=== PATIENT | male | born 1935 | race Caucasian/White ===

== ENCOUNTER 2018-10-08 06:50 | Day surgery (SDC) | payer MEDICARE, BC ==
[~2018-10-08] VITALS: Ht 172.7 cm; Wt 73.0 kg
[~2018-10-08 06:50] MED LIST: ASPI325 PO; GLIP10 PO; METF500C PO; Multivitamin1 EAC1 PO; RED YEAST RICE600 MG PO; Simvastatin20 MG PO
[2018-10-08 07:22] LABS: Hematocrit 46.2 % (37.0-53.0); Hemoglobin 14.2 g/dL (13.5-17.5); Mean Corpuscular HGB 28.7 pg (26.0-34.0); Mean Corpuscular HGB Conc 30.7 g/dL (31.5-36.5); Mean Corpuscular Volume 94 fL (80-100); Mean Platelet Volume 11.7 fL (9.1-12.4); Platelet Count 317 K/mm3 (150-400); RDW Coefficient Variation 15.4 % (11.7-14.2); RDW Standard Deviation 52.7 fL (35.1-46.3); Red Blood Cell Count 4.94 M/mm3 (4.30-5.90); White Blood Cell Count 24.98 K/mm3 (4.00-11.30)
[2018-10-08 07:29] LABS: Anion Gap 8 mmol/L (6-16); Blood Urea Nitrogen 26 mg/dL (8-24); CO2, Blood 28 mmol/L (21-32); Calcium, Blood 8.7 mg/dL (8.5-10.1); Chloride, Blood 109 mmol/L (98-108); Creatinine, Blood 1.18 mg/dL (0.60-1.20); Glomerular Filtration Rate >60 (60-); Glucose, Blood 207 mg/dL (70-99); Potassium, Blood 4.2 mmol/L (3.5-5.5); Sodium, Blood 145 mmol/L (136-145)
[2018-10-08 07:35] LABS: International Normalized Ratio 0.96; Prothrombin Time Results 10.2 Sec (9.7-11.5)
[2018-10-08 08:39] LABS: BASOPHILS PERCENT MAN 0 % (0-2); EOSINOPHILS ABSOLUTE MAN 0.49 K/mm3 (0.00-0.68); EOSINOPHILS PERCENT MAN 2 % (0-6); LYMPHOCYTES % ATYPICAL MANUAL 3 % (0-0); LYMPHOCYTES ABSOLUTE MAN 15.73 K/mm3 (0.84-5.20); LYMPHOCYTES PERCENT MAN 60 % (21-46); MONOCYTES ABSOLUTE MAN 0.99 K/mm3 (0.16-1.47); MONOCYTES PERCENT MAN 4 % (4-13); NEUTROPHILS ABSOLUTE MAN 7.74 K/mm3 (1.96-9.15); SEG NEUTROPHILS PERCENT MAN 31 % (41-73); TOTAL CELLS COUNTED 100
--- NOTE | 2018-10-08 09:29 | NUR ---
PT ARRIVED BACK TO RECOVERY ROOM IN BED. RIGHT FEMORAL GROIN SITE SOFT NON-TENDER WITH NO HEMATOMA,NO PULSATILE BLEEDING AND INTACT DRESSING WITH SLIGHT TRACK OOZING NOTED. PT DENIES PAIN. CALL LIGHT IN REACH. PT'S FAMILY IN ROOM. DR PETERSEN IN ROOM TO SEE PT.
--- NOTE | 2018-10-08 10:10 | NUR ---
PT EATING BREAKFAST AND DRINKING DIET PEPSI.
--- NOTE | 2018-10-08 10:51 | NUR ---
HOB UP 15 DEGREES.
--- NOTE | 2018-10-08 12:55 | NUR ---
RIGHT FEMORAL SITE SOFT WITH NO HEMATOMA AND NO BLEEDING. DRESSING INTACT. PT C/O "SORENESS" RIGHT FEMORAL SITE, DENIES ANY SHARP PAIN IN BACK.
--- NOTE | 2018-10-08 13:05 | NUR ---
PT AMBULATED TO BR TO VOID. RIGHT FEMORAL SITE NO CHANGES.
--- NOTE | 2018-10-08 13:27 | NUR ---
RIGHT GROIN SOFT STILL SOFT WITH NO HEMATOMA AND NO BLEEDING. DISCHARGE INSTRUCTIONS REVIEWED ALL QUESTIONS ANSWERED. 20 G IV DISCONTINUED FROM LEFT AC WITH INTACT CANNULA. PT ESCORTED OUT VIA WHEELCHAIR ESCORT.
== END 2018-10-08 13:30 | disposition home or self-care (01) ==
LOC: MHTC 06:50
PROVIDERS: Radiology Diagnostic Radiology
DX: I73.9 Peripheral vascular disease, unspecified (principal); E11.9 Type 2 diabetes mellitus without complications; Z79.84 Long term (current) use of oral hypoglycemic drugs; E78.5 Hyperlipidemia, unspecified; Z87.891 Personal history of nicotine dependence; Z88.8 Allergy status to other drugs, medicaments and biological substances
CPT/HCPCS: 37220; 37225; 75625; 75716; 75774; 80048; 85025; 85610; 99152; 99153; C1714; C1769; C1884; C1887; C1894; C2623; J1644; J2250; J3010; J7030; J7040; Q9967

== ENCOUNTER 2020-08-28 10:21 | Inpatient (IN) | payer MEDICARE, BC ==
[~2020-08-28] VITALS: Ht 170.2 cm; Wt 67.5 kg
[~2020-08-28 10:21] MED LIST changes: -ASPI325 PO; +ASPI325EC PO; +METF500 PO; -METF500C PO
[2020-08-28] MEDS ORDERED: CLOP75 PO (10:35)
[2020-08-28 10:53] LABS: Hematocrit 43.8 % (37.0-53.0); Hemoglobin 12.7 g/dL (13.5-17.5); Mean Corpuscular Volume 97 fL (80-100); Mean Platelet Volume 11.6 fL (9.1-12.4); Platelet Count 357 K/mm3 (150-400); RDW Coefficient Variation 15.9 % (11.7-14.2); RDW Standard Deviation 56.2 fL (35.1-46.3); Red Blood Cell Count 4.53 M/mm3 (4.30-5.90)
[2020-08-28 10:56] LABS: White Blood Cell Count 82.94 K/mm3 (4.00-11.30)
[2020-08-28 11:41] LABS: BASOPHILS PERCENT MAN 0 % (0-2); EOSINOPHILS ABSOLUTE MAN 0.82 K/mm3 (0.00-0.68); EOSINOPHILS PERCENT MAN 1 % (0-6); LYMPHOCYTES ABSOLUTE MAN 68.84 K/mm3 (0.84-5.20); LYMPHOCYTES PERCENT MAN 83 % (21-46); MONOCYTES ABSOLUTE MAN 4.14 K/mm3 (0.16-1.47); MONOCYTES PERCENT MAN 5 % (4-13); NEUTROPHILS ABSOLUTE MAN 9.12 K/mm3 (1.96-9.15); SEG NEUTROPHILS PERCENT MAN 11 % (41-73); TOTAL CELLS COUNTED 100
[2020-08-28 11:49] LABS: Alanine Aminotransfer (ALT/SGP 11 U/L (12-78); Albumin, Blood 2.6 g/dL (3.4-5.0); Albumin/Globulin Ratio 0.6 (0.8-1.8); Alk Phos 103 U/L (50-136); Anion Gap 11 mmol/L (6-16); Aspartate Aminotrans (AST/SGOT 13 U/L (12-37); Bilirubin, Total 0.5 mg/dL (0.1-1.0); Blood Urea Nitrogen 16 mg/dL (8-24); Bun/Creatinine Ratio 18.2 (12.0-20.0); CO2, Blood 25 mmol/L (21-32); Calcium, Blood 8.4 mg/dL (8.5-10.1); Chloride, Blood 103 mmol/L (98-108); Creatinine, Blood 0.88 mg/dL (0.60-1.20); Globulin, Blood 4.2 g/dL (2.2-4.0); Glomerular Filtration Rate >60 (60-); Glucose, Blood 129 mg/dL (70-99); Magnesium, Blood 2.1 mg/dL (1.6-2.4); Potassium, Blood 5.6 mmol/L (3.5-5.5); Sodium, Blood 139 mmol/L (136-145); Total Protein, Blood 6.8 g/dL (6.4-8.2); Troponin I <0.015 ng/mL (0.000-0.040)
[2020-08-28 12:29] LABS: Influenza A, PCR Negative (NEGATIVE); Influenza B, PCR Negative (NEGATIVE); Resp Syncytial Virus, PCR Negative (NEGATIVE); SARS-Cov-2 (COVID-19) PCR, MMC Negative (NEGATIVE)
[2020-08-28 13:40] LABS: PCO2 Arterial 73.7 mmHg (35-45); pH Blood Arterial 7.24 (7.35-7.45)
[2020-08-28] MEDS ORDERED: GLIP10ER PO (14:34)
[2020-08-28] MEDS ORDERED: METF500 PO (14:35)
[2020-08-28 15:43] LABS: Source, Urine Voided
[2020-08-28 15:46] LABS: Appearance, Urine Clear (Clear); Bilirubin, Urine Neg (Neg); Blood, Urine Neg (Neg); Color, Urine Yellow (P-Yellow); Glucose Qualitative, Urine Neg (Neg); Ketones, Urine Neg (Neg); Leukocyte Esterase, Urine Neg (Neg); Nitrite, Urine Neg (Neg); Protein, Urine 2+ (Neg); Urobilinogen, Urine NORM (Normal)
[2020-08-28 15:55] LABS: Bacteria Not Seen /hpf; Hyaline Casts 0-2 /lpf (0-2); Mucus Light (0-Heavy); Red Blood Cells, Urine Not Seen /hpf (0-2); Squamous Epithelial Cells Not Seen /hpf (Few); White Blood Cells, Urine Not Seen /hpf (0-5)
[2020-08-28 17:53] LABS: Base Excess Venous 2.9 mmol/L; Bicarbonate Venous 25.4 mmol/L (24.0-30.0); PCO2 Venous 65.4 mmHg (38-42); PO2 Venous 54.1 mmHg (38-42)
[2020-08-28 17:54] LABS: pH Blood Venous 7.27 (7.34-7.37)
--- NOTE | 2020-08-28 18:07 | NUR ---
PT ADMITTED TO PCU-8 VIA STRETCHER AND DAUGHTER IS IN ATTENDANCE WITH FATHER. PT IS CONFUSED AND SOMEWHAT COMBATIVE/FEARFUL. BIPAP CHANGED TO 14/6 30% PER RT. PT VOIDED SMALL AMOUNT. IV SITES INTACT.
--- NOTE | 2020-08-28 18:09 | NUR ---
PT IS RESTING WELL WITH DAUGHTER IN ROOM AND SATS INTACT. PT MAY NEED MUKESH VEST IF DAUGHTER LEAVES FOR NIGHT.
[2020-08-29 04:43] LABS: EOSINOPHILS ABSOLUTE AUTO 0.01 K/mm3 (0.00-0.68); EOSINOPHILS PERCENT AUTO 0 % (0-6); Hematocrit 37.4 % (37.0-53.0); Hemoglobin 10.7 g/dL (13.5-17.5); Mean Corpuscular HGB 27.8 pg (26.0-34.0); Mean Corpuscular HGB Conc 28.6 g/dL (31.5-36.5); Mean Corpuscular Volume 97 fL (80-100); NRBC ABSOLUTE 0.02 K/mm3 (0.00-0.02); Platelet Count 324 K/mm3 (150-400); RDW Coefficient Variation 15.9 % (11.7-14.2); RDW Standard Deviation 55.9 fL (35.1-46.3); Red Blood Cell Count 3.85 M/mm3 (4.30-5.90)
[2020-08-29 04:45] LABS: BASOPHILS ABSOLUTE AUTO 0.17 K/mm3 (0.00-0.23); BASOPHILS PERCENT AUTO 0 % (0-2); IMMATURE GRAN ABSOLUTE AUTO 0.54 K/mm3 (0.00-0.10); IMMATURE GRAN PERCENT AUTO 1 % (0-1); LYMPHOCYTES PERCENT AUTO 81 % (21-46); MONOCYTES ABSOLUTE AUTO 3.11 K/mm3 (0.16-1.47); MONOCYTES PERCENT AUTO 5 % (4-13); NEUTROPHILS ABSOLUTE AUTO 9.09 K/mm3 (1.96-9.15); NEUTROPHILS PERCENT AUTO 13 % (41-73)
[2020-08-29 04:46] LABS: White Blood Cell Count 68.32 K/mm3 (4.00-11.30)
[2020-08-29 05:00] LABS: Anion Gap 3 mmol/L (6-16); Blood Urea Nitrogen 27 mg/dL (8-24); CO2, Blood 31 mmol/L (21-32); Calcium, Blood 8.3 mg/dL (8.5-10.1); Chloride, Blood 106 mmol/L (98-108); Glomerular Filtration Rate >60 (60-); Glucose, Blood 192 mg/dL (70-99); Potassium, Blood 5.7 mmol/L (3.5-5.5); Sodium, Blood 140 mmol/L (136-145)
--- NOTE | 2020-08-29 07:23 | NUR ---
SHIFT SUMMARY PT IS CONFUSED, ORIENTED TO SELF ONLY. LESS DISORIENTED AT START AND END OF SHIFT. PT WAS COMBATIVE WHEN I WOKE HIM UP FOR HIS MIDNIGHT MEDICATIONS, HE WAS DIFFICULT TO AROUSE AND COULD NOT STAY AWAKE ENOUGH TO SWALLOW. VITALS STABLE, BP 100-110 SYSTOLIC, HR 70-90'S IN SINUS RHYTHM. PT ON BIPAP T/O SHIFT, UNABLE TO TAKE BIPAP OFF DUE TO PT DESATING TO LOW 80'S QUICKLY. BIPAP SETTING 14/6 30% AT START OF SHIFT, 16/6 40% WHEN SLEEPING WITH A SLOW RATE OF 10-12 BREATHS/MIN. PT BECOMES SOB WITH ANY EXERTION. PT CURRENTLY AWAKE AND MORE ALERT, WILL CONTINUE TO MONITOR UNTIL SHIFT CHANGE.
--- NOTE | 2020-08-29 13:25 | NUR ---
Advance Directive education/Spiritual care visit conducted. Patient is quite onry and funny today but patient's daughter, Katherine who is bedside is thankful when I hand her an advance care(AD) booklet. We go over the purpose and importance of the AD and look through the different sections. We talk about patietn's wishes and patient and Katherine agree to relook at the booklet when patient's spouse is present. I also conduct a life review of patient, discuss his spiritual journey ([employer] [facility] [employer] [facility]) and go over patient's career. I normalize patient patient's experience and provide companionship and prayer. Patient responds well and shows signs of an elevated mood. I will continue to remain available to patient and family.
--- NOTE | 2020-08-29 17:00 | NUR ---
SHIFT SUMMARY PT A&O TO SELF, FAMILY, SURROUNDING AND TIME. PT RESTING IN BED DURING SHIFT. UP TO BSC WITH 1 PERSON ASSIST. PT SOB WITH EXERTIONS ON BIPAP 08/20 AT 35% WITH BUR OF 12 THIS AM, TRANSITIONED TO 3L O2 VIA NC SPO2 >90% T/O SHIFT. PT DENIES PAIN, CHEST PAIN, NAUSEA AND DIZZINESS. PT RECEIVING PO ANTIBIOTICS. VSS. NO OTHER ACUTE CHANGES NOTED DURING SHIFT. WILL CONTINUE TO MONITOR UNITL REPORT TO ONCOMING RN.
--- NOTE | 2020-08-29 20:14 | NUR ---
CARE ASSUMPTION PT ALERT, ORIENTED TO SELF, FAMILY, FOLLOWING DIRECTIONS. SP02>92% ON 3L NC. PT HAS HACKING, MOIST COUGH. RT IN ROOM W/ PT USING SHAKER VEST UPON CARE ASSUMPTION. TELEMETRY READS SR, HR 78. PT DENIES ANY PAIN. PT'S AT BEDSIDE, STAYING THE NIGHT. CALL LIGHT IN REACH, WILL CONTINUE TO MONITOR.
[2020-08-30 04:08] LABS: Anion Gap 3 mmol/L (6-16); Blood Urea Nitrogen 39 mg/dL (8-24); Bun/Creatinine Ratio 34.8 (12.0-20.0); CO2, Blood 34 mmol/L (21-32); Calcium, Blood 8.3 mg/dL (8.5-10.1); Chloride, Blood 104 mmol/L (98-108); Creatinine, Blood 1.12 mg/dL (0.60-1.20); Glomerular Filtration Rate >60 (60-); Glucose, Blood 295 mg/dL (70-99); Sodium, Blood 141 mmol/L (136-145)
--- NOTE | 2020-08-30 05:55 | NUR ---
SHIFT SUMMARY NO ACUTE CHANGES THIS SHIFT. PT ALERT, ORIENTED TO SELF, FAMILY, FOLLOWING DIRECTIONS. VSS. SP02>90% ON 3L NC. PT DID NOT WEAR BIPAP TONIGHT PER RT B/C HIS SATS WERE GOOD W/ NC. PT HAS HACKING, MOIST COUGH. TELEMETRY READS SR, HR 70'S. PT DENIES ANY PAIN. PT USED URINAL AT BEDSIDE. SLEPT T/O THE NIGHT. NOW IN ROOM RESTING, WATCHING TV. PT'S AT BEDSIDE, STAYED THE NIGHT. CALL LIGHT IN REACH, WILL CONTINUE TO MONITOR.
[2020-08-30] MEDS ORDERED: AZIT250 PO (08:22)
[2020-08-30] MEDS ORDERED: GUAI600T33 PO (08:22)
[2020-08-30] MEDS ORDERED: IPRAT-ALBUT 0.5-3 ML INH (08:23)
[2020-08-30] MEDS ORDERED: Prednisone20 MG PO (08:25)
[2020-08-30] MEDS ORDERED: PANT20 PO (08:26)
[2020-08-30] MEDS ORDERED: PROAIR RESPICL90 MCG INH (08:26)
[2020-08-30] MEDS ORDERED: TIOT18 INH (08:26)
--- NOTE | 2020-08-30 16:08 | NUR ---
DISCHARGE SUMMARY PT A&Ox3; CALM AND COOPERATIVE WITH CARE. PT RESTING IN BED DURING SHIFT. UP TO BATHROOM WITH 1 PERSON ASSIST. PT SOB WITH EXERTION; ATTEMPTED TO TITRATE O2; PT WEARING 3L O2 VIA NC. HOME O2 EVALUATION COMPLETED. PT DENIES PAIN, NAUSEA AND DIZZINESS. VSS. NO OTHER ACUTE CHANGES NOTED DURING SHIFT. SPOUSE AND PT EDCUATED ON DISCHARGE INSTRUCTIONS, FOLLOW UP APPOINTMENTS AND PRESCRIPTIONS. [facility] [address]. PT LEFT ROOM VIA WHEELCHAIR.
== END 2020-08-30 15:15 | disposition home or self-care (01) | DRG 189 ==
LOC: ER 10:21 → PCU 14:17
PROVIDERS: Emergency Medicine; Nurse Practitioner Acute Care; ADMIT Internal Medicine
PROC: 5A09357 Assistance with Respiratory Ventilation, Less than 24 Consecutive Hours, Continuous Positive Airway Pressure (ICD-10-PCS; principal; 2020-08-28)
DX: J96.01 Acute respiratory failure with hypoxia (principal); G92 Toxic encephalopathy; J44.1 Chronic obstructive pulmonary disease with (acute) exacerbation; C91.10 Chronic lymphocytic leukemia of B-cell type not having achieved remission; Z20.828 Contact with and (suspected) exposure to other viral communicable diseases; J96.02 Acute respiratory failure with hypercapnia; E11.51 Type 2 diabetes mellitus with diabetic peripheral angiopathy without gangrene; E87.5 Hyperkalemia; E78.5 Hyperlipidemia, unspecified; F17.210 Nicotine dependence, cigarettes, uncomplicated; Z79.02 Long term (current) use of antithrombotics/antiplatelets; Z79.82 Long term (current) use of aspirin; Z79.84 Long term (current) use of oral hypoglycemic drugs
CPT/HCPCS: 0241U; 36415; 36600; 70450; 71045; 71260; 80048; 80053; 81001; 82803; 82947; 83735; 84100; 84132; 84484; 84550; 85025; 93005; 93010; 94640; 94660; 94664; 94667; 94668; 94760; 94762; 98960; 99285-25; 99407; A9270-GY; J1650; J2930; J7030; J7512; Q9967

== ENCOUNTER 2020-09-12 10:04 | Day surgery (SDC) | payer MEDICARE, BC ==
[~2020-09-12] VITALS: Ht 172.7 cm; Wt 63.0 kg
[~2020-09-12 10:04] MED LIST changes: +AZIT250 PO; +CLOP75 PO; +GLIP10ER PO; +GUAI600T33 PO; +IPRAT-ALBUT 0.5-3 ML INH; +PANT20 PO; +PROAIR RESPICL90 MCG INH; +Prednisone20 MG PO; +TIOT18 INH
== END 2020-09-12 19:00 | disposition home or self-care (01) ==
LOC: MHTC 10:04
DX: E11.51 Type 2 diabetes mellitus with diabetic peripheral angiopathy without gangrene (principal); I70.213 Atherosclerosis of native arteries of extremities with intermittent claudication, bilateral legs; E78.5 Hyperlipidemia, unspecified; I10 Essential (primary) hypertension; J44.9 Chronic obstructive pulmonary disease, unspecified; Z88.8 Allergy status to other drugs, medicaments and biological substances; Z20.828 Contact with and (suspected) exposure to other viral communicable diseases; Z79.82 Long term (current) use of aspirin; Z79.02 Long term (current) use of antithrombotics/antiplatelets; Z79.84 Long term (current) use of oral hypoglycemic drugs; Z79.899 Other long term (current) drug therapy; Z87.891 Personal history of nicotine dependence
CPT/HCPCS: 76937; 85347; 99152; 99153; C1714; C1725; C1760; C1769; C1874; C1884; C1887; C1894; C2623; J1644; J2250; J3010; J7030; J7050; Q9967

== ENCOUNTER 2020-09-25 11:43 | Emergency (ER) | payer OTHER ==
[~2020-09-25] VITALS: Ht 177.8 cm; Wt 65.8 kg
[2020-09-25 12:23] LABS: BASOPHILS ABSOLUTE AUTO 0.03 K/mm3 (0.00-0.23); BASOPHILS PERCENT AUTO 0 % (0-2); EOSINOPHILS ABSOLUTE AUTO 0.07 K/mm3 (0.00-0.68); EOSINOPHILS PERCENT AUTO 1 % (0-6); Hematocrit 39.5 % (37.0-53.0); Hemoglobin 11.5 g/dL (13.5-17.5); IMMATURE GRAN ABSOLUTE AUTO 0.06 K/mm3 (0.00-0.10); IMMATURE GRAN PERCENT AUTO 1 % (0-1); LYMPHOCYTES ABSOLUTE AUTO 5.36 K/mm3 (0.84-5.20); LYMPHOCYTES PERCENT AUTO 58 % (21-46); MONOCYTES ABSOLUTE AUTO 0.84 K/mm3 (0.16-1.47); MONOCYTES PERCENT AUTO 9 % (4-13); Mean Corpuscular HGB 27.6 pg (26.0-34.0); Mean Corpuscular HGB Conc 29.1 g/dL (31.5-36.5); Mean Corpuscular Volume 95 fL (80-100); Mean Platelet Volume 12.2 fL (9.1-12.4); NEUTROPHILS ABSOLUTE AUTO 2.87 K/mm3 (1.96-9.15); NEUTROPHILS PERCENT AUTO 31 % (41-73); Platelet Count 231 K/mm3 (150-400); RDW Coefficient Variation 15.4 % (11.7-14.2); RDW Standard Deviation 53.3 fL (35.1-46.3); Red Blood Cell Count 4.17 M/mm3 (4.30-5.90); White Blood Cell Count 9.23 K/mm3 (4.00-11.30)
[2020-09-25 12:41] LABS: Alanine Aminotransfer (ALT/SGP 22 U/L (12-78); Albumin, Blood 2.7 g/dL (3.4-5.0); Albumin/Globulin Ratio 0.8 (0.8-1.8); Alk Phos 100 U/L (50-136); Anion Gap 5 mmol/L (6-16); Aspartate Aminotrans (AST/SGOT 33 U/L (12-37); Bilirubin, Total 0.5 mg/dL (0.1-1.0); Blood Urea Nitrogen 25 mg/dL (8-24); Bun/Creatinine Ratio 27.7 (12.0-20.0); CO2, Blood 31 mmol/L (21-32); Calcium, Blood 8.3 mg/dL (8.5-10.1); Chloride, Blood 106 mmol/L (98-108); Globulin, Blood 3.5 g/dL (2.2-4.0); Glomerular Filtration Rate >60 (60-); Glucose, Blood 198 mg/dL (70-99); Potassium, Blood 5.7 mmol/L (3.5-5.5); Sodium, Blood 142 mmol/L (136-145); Total Protein, Blood 6.2 g/dL (6.4-8.2); Troponin I <0.015 ng/mL (0.000-0.040)
[2020-09-25 13:16] LABS: Source, Urine Clean Catch
[2020-09-25 13:26] LABS: Bilirubin, Urine Neg (Neg); Blood, Urine Neg (Neg); Glucose Qualitative, Urine 1+ (Neg); Ketones, Urine Neg (Neg); Leukocyte Esterase, Urine 1+ (Neg); Nitrite, Urine Neg (Neg); Protein, Urine 1+ (Neg); Urobilinogen, Urine 1+ (Normal)
[2020-09-25 13:33] LABS: Appearance, Urine Clear (Clear); Color, Urine Yellow (P-Yellow)
[2020-09-25 13:35] LABS: Bacteria Mod /hpf; Red Blood Cells, Urine 0-2 /hpf (0-2); Squamous Epithelial Cells Rare /hpf (Few)
== END 2020-09-25 14:36 | disposition home or self-care (01) ==
LOC: ER 11:43
PROVIDERS: Emergency Medicine
DX: R41.82 Altered mental status, unspecified (principal); F17.210 Nicotine dependence, cigarettes, uncomplicated; Z88.8 Allergy status to other drugs, medicaments and biological substances; Z79.84 Long term (current) use of oral hypoglycemic drugs; Z79.899 Other long term (current) drug therapy
CPT/HCPCS: 70450; 71046; 80053; 81001; 82947; 83880; 84484; 85025; 87077; 87086; 87186; 93005; 93010; 99285-25

== ENCOUNTER 2021-01-22 11:08 | Emergency (ER) | payer OTHER ==
[~2021-01-22] VITALS: Ht 170.2 cm; Wt 60.8 kg
[2021-01-22 12:12] LABS: BASOPHILS ABSOLUTE AUTO 0.09 K/mm3 (0.00-0.23); BASOPHILS PERCENT AUTO 0 % (0-2); EOSINOPHILS ABSOLUTE AUTO 0.34 K/mm3 (0.00-0.68); EOSINOPHILS PERCENT AUTO 1 % (0-6); Hematocrit 43.3 % (37.0-53.0); Hemoglobin 13.1 g/dL (13.5-17.5); Mean Corpuscular HGB 27.9 pg (26.0-34.0); Mean Corpuscular HGB Conc 30.3 g/dL (31.5-36.5); Mean Corpuscular Volume 92 fL (80-100); Mean Platelet Volume 11.2 fL (9.1-12.4); Platelet Count 351 K/mm3 (150-400); RDW Coefficient Variation 15.9 % (11.7-14.2); RDW Standard Deviation 53.5 fL (35.1-46.3); White Blood Cell Count 24.45 K/mm3 (4.00-11.30)
[2021-01-22 12:22] LABS: IMMATURE GRAN ABSOLUTE AUTO 0.07 K/mm3 (0.00-0.10); IMMATURE GRAN PERCENT AUTO 0 % (0-1); LYMPHOCYTES ABSOLUTE AUTO 15.62 K/mm3 (0.84-5.20); LYMPHOCYTES PERCENT AUTO 64 % (21-46); MONOCYTES ABSOLUTE AUTO 0.94 K/mm3 (0.16-1.47); MONOCYTES PERCENT AUTO 4 % (4-13); NEUTROPHILS ABSOLUTE AUTO 7.39 K/mm3 (1.96-9.15); NEUTROPHILS PERCENT AUTO 30 % (41-73)
[2021-01-22 12:27] LABS: International Normalized Ratio 0.95; Prothrombin Time Results 10.3 Sec (9.7-11.5)
[2021-01-22 12:36] LABS: Alanine Aminotransfer (ALT/SGP 15 U/L (12-78); Albumin, Blood 3.8 g/dL (3.4-5.0); Alk Phos 163 U/L (50-136); Anion Gap 8 mmol/L (6-16); Aspartate Aminotrans (AST/SGOT 9 U/L (12-37); Bilirubin, Total 0.5 mg/dL (0.1-1.0); Blood Urea Nitrogen 39 mg/dL (8-24); Bun/Creatinine Ratio 32.5 (12.0-20.0); CO2, Blood 26 mmol/L (21-32); Calcium, Blood 9.5 mg/dL (8.5-10.1); Chloride, Blood 107 mmol/L (98-108); Globulin, Blood 3.7 g/dL (2.2-4.0); Glomerular Filtration Rate >60 (60-); Glucose, Blood 222 mg/dL (70-99); Potassium, Blood 4.8 mmol/L (3.5-5.5); Sodium, Blood 141 mmol/L (136-145); Total Protein, Blood 7.5 g/dL (6.4-8.2)
[2021-01-22 12:59] LABS: Ethanol (Alcohol), Blood, Med <3 mg/dL
[2021-01-22 14:45] LABS: PCO2 Arterial 39.5 mmHg (35-45); PO2 Arterial 77 mmHg (80-100); pH Blood Arterial 7.36 (7.35-7.45)
[2021-01-22 16:19] LABS: Source, Urine Catheter
[2021-01-22 16:25] LABS: Appearance, Urine Clear (Clear); Bilirubin, Urine Neg (Neg); Blood, Urine Neg (Neg); Color, Urine Yellow (P-Yellow); Glucose Qualitative, Urine 4+ (Neg); Ketones, Urine Neg (Neg); Leukocyte Esterase, Urine Neg (Neg); Nitrite, Urine Neg (Neg); Protein, Urine 1+ (Neg); Urobilinogen, Urine NORM (Normal)
[2021-01-22 16:54] LABS: U Amphetamine Screen Not Detected; U Barbituate Screen Not Detected; U Benzodiazapine Screen Not Detected; U Buprenorphine Screen Not Detected; U Cannabinoids Screen Not Detected; U Cocaine Screen Not Detected; U Methadone Screen Not Detected; U Methamphetamine Screen Not Detected; U Opiates Screen Not Detected; U Oxycodone Screen Not Detected; U Phencyclidine Screen Not Detected; U Propoxyphene Screen Not Detected
== END 2021-01-22 17:40 | disposition home or self-care (01) ==
LOC: ER 11:08
PROVIDERS: Physician Assistant
DX: R41.0 Disorientation, unspecified (principal); G47.00 Insomnia, unspecified; R44.3 Hallucinations, unspecified; E11.9 Type 2 diabetes mellitus without complications; E78.5 Hyperlipidemia, unspecified; F17.200 Nicotine dependence, unspecified, uncomplicated
CPT/HCPCS: 36415; 36600; 70450; 80053; 82375; 82803; 82947; 85025; 85610; 93005; 93010; 99285-25; G0480

== ENCOUNTER 2022-02-05 12:10 | Day surgery (SDC) | payer OTHER ==
[~2022-02-05] VITALS: Ht 172.7 cm; Wt 60.3 kg
[~2022-02-05 12:10] MED LIST changes: +AMOX875 PO; +CALQUENCE PO; +CLIN150 PO
--- NOTE | 2022-02-05 16:37 | NUR ---
FOLLOWED PT BACK FROM PROCEDURE, WILL MONITOR. R GROIN SITE STABLE.
[2022-02-05] MEDS ORDERED: CLOP75 PO (16:42)
--- NOTE | 2022-02-05 17:06 | NUR ---
PT ACCIDENTLY PULLED IV OUT OF L FOREARM.
--- NOTE | 2022-02-05 17:31 | NUR ---
HOB ELEVATED, R GROIN SITE STABLE. PT EATING AT THIS TIME. DAUGHTER AT BEDSIDE.
--- NOTE | 2022-02-05 18:28 | NUR ---
DISCHARGE REVIEWED WITH DAUGHTERS, BOTH VERBALIZE UNDERSTANDING OF INSTRUCTIONS. PT UP AND DRESSED WITH ASSIST. R GROIN SITE STABLE. PT TO PRIVATE VEHICLE PER W/C WITH ONE STAFF.
== END 2022-02-05 18:30 | disposition home or self-care (01) ==
LOC: MHTC 12:10
DX: E11.51 Type 2 diabetes mellitus with diabetic peripheral angiopathy without gangrene (principal); E11.621 Type 2 diabetes mellitus with foot ulcer; I70.222 Atherosclerosis of native arteries of extremities with rest pain, left leg; I70.211 Atherosclerosis of native arteries of extremities with intermittent claudication, right leg; L97.519 Non-pressure chronic ulcer of other part of right foot with unspecified severity; L97.529 Non-pressure chronic ulcer of other part of left foot with unspecified severity; J44.9 Chronic obstructive pulmonary disease, unspecified; E78.5 Hyperlipidemia, unspecified; C91.10 Chronic lymphocytic leukemia of B-cell type not having achieved remission; F17.210 Nicotine dependence, cigarettes, uncomplicated; Z88.8 Allergy status to other drugs, medicaments and biological substances
CPT/HCPCS: 76937; 85347; 99152; 99153; A9270; C1714; C1725; C1760; C1769; C1874; C1887; C1894; C2623; J1644; J2250; J3010; J7030; J7040; Q9967

== ENCOUNTER → 2022-03-11 | Outpatient (CLI) | payer OTHER | END | disposition home or self-care (01) | LOC: LAB SHORT 08:55 → PLD 08:55 | DX: M86.9 Osteomyelitis, unspecified (principal); L97.509 Non-pressure chronic ulcer of other part of unspecified foot with unspecified severity | CPT/HCPCS: 88305; 88311 ==

== ENCOUNTER 2022-03-19 10:26 | Day surgery (SDC) | payer OTHER ==
[~2022-03-19] VITALS: Ht 172.7 cm; Wt 60.0 kg
--- NOTE | 2022-03-19 16:40 | NUR ---
PT DRESSES SELF WITHOUT DIFF. AMBULATES TO AND FROM RESTROOM WITHOUT DIFF. PT L FEMORAL SITE REMAINS STABLE/ NO BLEEDING OR HEMATOMA NOTED. VSS. NADN. PT AND FAMILY VERBALIZES UNDERSTANDING WRITTEN
== END 2022-03-19 16:40 | disposition home or self-care (01) ==
LOC: MHTC 10:26
DX: E11.51 Type 2 diabetes mellitus with diabetic peripheral angiopathy without gangrene (principal); I70.235 Atherosclerosis of native arteries of right leg with ulceration of other part of foot; I70.212 Atherosclerosis of native arteries of extremities with intermittent claudication, left leg; J44.9 Chronic obstructive pulmonary disease, unspecified; E78.5 Hyperlipidemia, unspecified; F17.210 Nicotine dependence, cigarettes, uncomplicated; Z72.0 Tobacco use; Z88.8 Allergy status to other drugs, medicaments and biological substances; Z79.84 Long term (current) use of oral hypoglycemic drugs; L97.519 Non-pressure chronic ulcer of other part of right foot with unspecified severity; L97.529 Non-pressure chronic ulcer of other part of left foot with unspecified severity
CPT/HCPCS: 37220; 37227; 75716; 75774; 76937; 85347; 99152; 99153; C1714; C1725; C1760; C1769; C1874; C1887; C1894; C2623; J1644; J2250; J3010; J7030; J7040; Q9967

== ENCOUNTER 2023-05-23 08:42 | Emergency (ER) | payer OTHER ==
[~2023-05-23] VITALS: Ht 177.8 cm; Wt 72.6 kg
[2023-05-23 10:12] LABS: Source, Urine Clean Catch
[2023-05-23 10:19] LABS: Appearance, Urine Clear (Clear); Bilirubin, Urine Neg (Neg); Blood, Urine Neg (Neg); Color, Urine Yellow (P-Yellow); Glucose Qualitative, Urine Neg (Neg); Ketones, Urine Neg (Neg); Leukocyte Esterase, Urine Neg (Neg); Nitrite, Urine Neg (Neg); Protein, Urine 1+ (Neg); Urobilinogen, Urine NORM (Normal)
[2023-05-23 11:33] LABS: Albumin, Blood 3.6 g/dL (3.4-5.0); Albumin/Globulin Ratio 1.2 (0.8-1.8); Bilirubin, Total 0.5 mg/dL (0.1-1.0); Bun/Creatinine Ratio 18.7 (12.0-20.0); Calcium, Blood 9.3 mg/dL (8.5-10.1); Creatinine, Blood 1.23 mg/dL (0.60-1.20); Potassium, Blood 5.2 mmol/L (3.5-5.5); Total Protein, Blood 6.6 g/dL (6.4-8.2)
[2023-05-23 11:35] LABS: Hematocrit 41.1 % (37.0-53.0); Hemoglobin 12.5 g/dL (13.5-17.5); Mean Corpuscular HGB 26.9 pg (26.0-34.0); Mean Corpuscular HGB Conc 30.4 g/dL (31.5-36.5); Mean Corpuscular Volume 88 fL (80-100); Mean Platelet Volume 11.9 fL (9.1-12.4); Platelet Count 258 K/mm3 (150-400); RDW Coefficient Variation 16.7 % (11.7-14.2); RDW Standard Deviation 53.8 fL (35.1-46.3); Red Blood Cell Count 4.65 M/mm3 (4.30-5.90)
[2023-05-23 11:39] LABS: White Blood Cell Count 10.38 K/mm3 (4.00-11.30)
[2023-05-23 12:46] LABS: BAND PERCENT MAN 1 % (0-8); BASOPHILS PERCENT MAN 0 % (0-2); EOSINOPHILS PERCENT MAN 0 % (0-6); LYMPHOCYTES % ATYPICAL MANUAL 1 % (0-0); LYMPHOCYTES ABSOLUTE MAN 3.52 K/mm3 (0.84-5.20); LYMPHOCYTES PERCENT MAN 33 % (21-46); METAMYELOCYTE PERCENT MAN 2 % (0-0); MONOCYTES ABSOLUTE MAN 0.83 K/mm3 (0.16-1.47); MONOCYTES PERCENT MAN 8 % (4-13); NEUTROPHILS ABSOLUTE MAN 5.81 K/mm3 (1.96-9.15); SEG NEUTROPHILS PERCENT MAN 55 % (41-73); TOTAL CELLS COUNTED 100
[2023-05-23 16:06] VITALS: BP 108/70
== END 2023-05-23 16:08 | disposition home or self-care (01) ==
LOC: ER 08:42
PROVIDERS: Student in an Organized Health Care Education/Training Program
DX: F03.90 Unspecified dementia, unspecified severity, without behavioral disturbance, psychotic disturbance, mood disturbance, and anxiety (principal); Z88.8 Allergy status to other drugs, medicaments and biological substances; Z79.899 Other long term (current) drug therapy; Z79.84 Long term (current) use of oral hypoglycemic drugs; E11.9 Type 2 diabetes mellitus without complications; E78.5 Hyperlipidemia, unspecified; F17.200 Nicotine dependence, unspecified, uncomplicated
CPT/HCPCS: 80053; 85025; 99284

== ENCOUNTER 2023-07-03 17:36 | Emergency (ER) | payer OTHER ==
[~2023-07-03] VITALS: Ht 172.7 cm; Wt 56.7 kg
[2023-07-03 17:59] LABS: BASOPHILS ABSOLUTE AUTO 0.01 K/mm3 (0.00-0.23); BASOPHILS PERCENT AUTO 0 % (0-2); EOSINOPHILS ABSOLUTE AUTO 0.01 K/mm3 (0.00-0.68); EOSINOPHILS PERCENT AUTO 0 % (0-6); Hematocrit 33.7 % (37.0-53.0); Hemoglobin 10.1 g/dL (13.5-17.5); IMMATURE GRAN ABSOLUTE AUTO 0.03 K/mm3 (0.00-0.10); IMMATURE GRAN PERCENT AUTO 0 % (0-1); LYMPHOCYTES ABSOLUTE AUTO 2.67 K/mm3 (0.84-5.20); LYMPHOCYTES PERCENT AUTO 30 % (21-46); MONOCYTES ABSOLUTE AUTO 1.55 K/mm3 (0.16-1.47); MONOCYTES PERCENT AUTO 17 % (4-13); Mean Corpuscular HGB 26.4 pg (26.0-34.0); Mean Corpuscular Volume 88 fL (80-100); Mean Platelet Volume 10.5 fL (9.1-12.4); NEUTROPHILS ABSOLUTE AUTO 4.68 K/mm3 (1.96-9.15); NEUTROPHILS PERCENT AUTO 52 % (41-73); Platelet Count 208 K/mm3 (150-400); RDW Coefficient Variation 16.3 % (11.7-14.2); RDW Standard Deviation 53.2 fL (35.1-46.3); Red Blood Cell Count 3.82 M/mm3 (4.30-5.90); White Blood Cell Count 8.95 K/mm3 (4.00-11.30)
[2023-07-03 18:27] LABS: Albumin, Blood 2.9 g/dL (3.4-5.0); Albumin/Globulin Ratio 0.9 (0.8-1.8); Bilirubin, Total 0.5 mg/dL (0.1-1.0); Bun/Creatinine Ratio 22.6 (12.0-20.0); Calcium, Blood 8.2 mg/dL (8.5-10.1); Creatinine, Blood 1.33 mg/dL (0.60-1.20); Globulin, Blood 3.1 g/dL (2.2-4.0); Potassium, Blood 4.5 mmol/L (3.5-5.5)
[2023-07-03 19:18] LABS: Magnesium, Blood 1.8 mg/dL (1.6-2.4)
[2023-07-03 19:19] LABS: Thyroid Stimulating Hormone 1.01 uIU/mL (0.360-4.800)
[2023-07-03 22:57] LABS: Influenza A, PCR NEGATIVE (NEGATIVE); Influenza B, PCR NEGATIVE (NEGATIVE); Resp Syncytial Virus, PCR NEGATIVE (NEGATIVE)
[2023-07-03 23:13] LABS: SARS-Cov-2 (COVID-19) PCR, MMC POSITIVE (NEGATIVE)
[2023-07-04] MEDS ORDERED: ONDA4ODT MM (09:24)
[2023-07-04 16:12] VITALS: BP 133/69
== END 2023-07-04 17:05 | disposition home or self-care (01) ==
LOC: ER 17:36
PROVIDERS: Student in an Organized Health Care Education/Training Program
DX: U07.1 COVID-19 (principal); E86.0 Dehydration; Z88.8 Allergy status to other drugs, medicaments and biological substances; Z79.899 Other long term (current) drug therapy; Z79.84 Long term (current) use of oral hypoglycemic drugs; E11.9 Type 2 diabetes mellitus without complications; E78.5 Hyperlipidemia, unspecified; F17.200 Nicotine dependence, unspecified, uncomplicated
CPT/HCPCS: 0241U; 71046; 80053; 83605; 83735; 84443; 84484; 85025; 93005; 93010; 96360; 99285-25; A9270; J7030

== ENCOUNTER 2023-07-06 20:16 | Inpatient (IN) | payer OTHER ==
[~2023-07-06] VITALS: Ht 154.9 cm; Wt 54.5 kg
[~2023-07-06 20:16] MED LIST changes: +ONDA4ODT MM
[2023-07-06 20:32] LABS: Hematocrit 34.6 % (37.0-53.0); Hemoglobin 10.4 g/dL (13.5-17.5); Mean Corpuscular HGB 26.5 pg (26.0-34.0); Mean Corpuscular HGB Conc 30.1 g/dL (31.5-36.5); Mean Corpuscular Volume 88 fL (80-100); Platelet Count 268 K/mm3 (150-400); RDW Coefficient Variation 16.5 % (11.7-14.2); RDW Standard Deviation 53.8 fL (35.1-46.3); Red Blood Cell Count 3.93 M/mm3 (4.30-5.90); White Blood Cell Count 9.63 K/mm3 (4.00-11.30)
[2023-07-06 20:49] LABS: Albumin, Blood 2.8 g/dL (3.4-5.0); Albumin/Globulin Ratio 0.9 (0.8-1.8); Bilirubin, Total 0.4 mg/dL (0.1-1.0); Bun/Creatinine Ratio 22.1 (12.0-20.0); Calcium, Blood 8.3 mg/dL (8.5-10.1); Creatinine, Blood 1.36 mg/dL (0.60-1.20); Globulin, Blood 3.2 g/dL (2.2-4.0); Potassium, Blood 4.6 mmol/L (3.5-5.5)
[2023-07-06 20:58] LABS: BAND PERCENT MAN 8 % (0-8); BASOPHILS PERCENT MAN 0 % (0-2); EOSINOPHILS PERCENT MAN 0 % (0-6); LYMPHOCYTES % ATYPICAL MANUAL 1 % (0-0); LYMPHOCYTES ABSOLUTE MAN 2.69 K/mm3 (0.84-5.20); LYMPHOCYTES PERCENT MAN 27 % (21-46); MONOCYTES ABSOLUTE MAN 0.57 K/mm3 (0.16-1.47); MONOCYTES PERCENT MAN 6 % (4-13); NEUTROPHILS ABSOLUTE MAN 6.35 K/mm3 (1.96-9.15); SEG NEUTROPHILS PERCENT MAN 58 % (41-73); TOTAL CELLS COUNTED 100
[2023-07-07 00:47] VITALS: BP 113/66
--- NOTE | 2023-07-07 06:42 | NUR ---
SHIFT SUMMARY REPORT FROM ED RN- PT BROUGHT VIA StupilFILIPPO- PT HITTING AT STAFF AND NOT ALLOWING CARE TO BED DONE, CALL TO [facility] AND REQUESTED STATISTICAL SECRETARY AND NEW ORDER FOR XYPREXA, GAVE IM- PT CALMED AND ALLOWED CARE, PT SATS 97-99 % ON 4L VIA MO, PICTURE OF PRESSURE WOUND IN SACRUM IN CHART, SKIN TEAR NOTED ON LEFT ELBOW AND RIGHT KNUCKLE, BOTH APPEAR TO BE HEALING- PT REPOSITIONED AND BRIEF CHANGED Q2H T/O NIGHT, CALL FROM JOSE DAUGHTER WITH UPDATE- DAUGHTER HILDA TO BE IN TODAY FOR UPDATE OF ADMISSION QUESTION AND CURRENT MEDS- BED LOW POSITION, CALL LIGHT WITHIN REACH, BED ALARM IN PLACE, PT ON ENHANCED PRECAUTIONS D/T [id number]
[2023-07-07 07:58] VITALS: BP 133/64
[2023-07-07 08:49] LABS: BASOPHILS ABSOLUTE AUTO 0.01 K/mm3 (0.00-0.23); BASOPHILS PERCENT AUTO 0 % (0-2); EOSINOPHILS PERCENT AUTO 0 % (0-6); Hematocrit 35.1 % (37.0-53.0); Hemoglobin 10.3 g/dL (13.5-17.5); IMMATURE GRAN ABSOLUTE AUTO 0.02 K/mm3 (0.00-0.10); IMMATURE GRAN PERCENT AUTO 0 % (0-1); LYMPHOCYTES ABSOLUTE AUTO 2.33 K/mm3 (0.84-5.20); LYMPHOCYTES PERCENT AUTO 34 % (21-46); MONOCYTES ABSOLUTE AUTO 0.59 K/mm3 (0.16-1.47); MONOCYTES PERCENT AUTO 9 % (4-13); Mean Corpuscular HGB 26.3 pg (26.0-34.0); Mean Corpuscular HGB Conc 29.3 g/dL (31.5-36.5); Mean Corpuscular Volume 90 fL (80-100); Mean Platelet Volume 11.2 fL (9.1-12.4); NEUTROPHILS ABSOLUTE AUTO 3.84 K/mm3 (1.96-9.15); NEUTROPHILS PERCENT AUTO 57 % (41-73); Platelet Count 235 K/mm3 (150-400); RDW Coefficient Variation 16.4 % (11.7-14.2); RDW Standard Deviation 54.4 fL (35.1-46.3); Red Blood Cell Count 3.91 M/mm3 (4.30-5.90); White Blood Cell Count 6.79 K/mm3 (4.00-11.30)
--- NOTE | 2023-07-07 09:00 | NUR ---
pt laying in bed, oriented to self, unable to follow commands, is very sleepy this am, daughter at bedside, pt lungs are a bit course t/o, on 4 liters o2 via n/c, sats 99% so titrated down to 3 liters, no cough noted, hrr, no edema ntoed, ppp +1, cap refill <3sec, vs stable, afebrile, iv site to lfa is clear and patent, btx4, incont bowel/bladder, briefs in place, skin has wound to sacral area, keeping turned, mepilex in place, moves ext, damir, call light in reach.
[2023-07-07] MEDS ORDERED: SENNA LAXATIVE8.6 MG PO (09:15)
[2023-07-07] MEDS ORDERED: CALQUENCE100 M1 PO (09:15)
[2023-07-07 09:18] LABS: Albumin, Blood 2.5 g/dL (3.4-5.0); Albumin/Globulin Ratio 0.7 (0.8-1.8); Bilirubin, Total 0.4 mg/dL (0.1-1.0); Calcium, Blood 8.2 mg/dL (8.5-10.1); Creatinine, Blood 1.29 mg/dL (0.60-1.20); Globulin, Blood 3.4 g/dL (2.2-4.0); Potassium, Blood 5.6 mmol/L (3.5-5.5); Total Protein, Blood 5.9 g/dL (6.4-8.2)
[2023-07-07 15:34] VITALS: BP 119/65
[2023-07-07 19:35] VITALS: BP 94/62
[2023-07-08 03:50] VITALS: BP 111/68
--- NOTE | 2023-07-08 04:05 | NUR ---
SHIFT SUMMARY PATIENT A/Ox1-2, ADVANCED DEMENTIA REPORTED BY FAMILY. APPEARS CALM, IN NO ACUTE DISTRESS. NO ADVERSE BEHAVIORS OBSERVED. CONTINUES ON TELE, NORMAL SINUS 70s. MAINTAINING SPO2 >90% ON 2L VIA NC. BED ALARM ON FOR PATIENT SAFETY. NO ACUTE CHANGES NOTED OVERNIGHT. BED LOCKED AND IN LOWEST POSITION, CALL LIGHT WITHIN REACH.
[2023-07-08 07:28] VITALS: BP 123/65
[2023-07-08] MEDS ORDERED: ASPI81CH PO (14:12)
--- NOTE | 2023-07-08 15:48 | NUR ---
SHIFT SUMMARY PATIENT UP IN CHAIR TODAY FOR LUNCH. HE HAS GOTTEN UP SEVERAL TIMES WITH CHAIR ALARM AND BED ALARM IN PLACE. AT ONE POINT PATIENT MADE IT TO HALLWAY, AMBULATING WITHOUT ASSISTANCE. PATIENT NEEDS FREQUENT REDIRECTION FOR DEMENTIA. HE KEEPS ASKING TO TALK WITH HIS . BED ALARM ON, CALL LIGHT IN REACH. WILL CONTINUE TO MONITOR.
--- NOTE | 2023-07-08 17:23 | NUR ---
DISCHARGE SUMMARY PATIENT UP OUT OF BED MULTIPLE TIMES, SETTING OFF BED ALARM, WALKED PATIENT BACK FROM [facility] TO BED SEVERAL TIMES. DAUGHTER HILDA ARRIVED FOR DISCHARGE. MEDICATION AND EDUCATION PACKETS PRINTED OUT AND GIVEN TO PATIENT AND DAUGHTER. DAUGHTER HILDA SIGNED PATIENT PACKET. PATIENT LEFT UNIT AT 1701 VIA WHEELCHAIR WITH RASTA WALTERS CNA AND DAUGHTER HILDA. LEAVING PARKING LOT VIA PRIVATE VEHICLE TO HOME.
== END 2023-07-08 17:09 | disposition home or self-care (01) | DRG 177 ==
LOC: ER 20:16 → MEDS 20:17
PROVIDERS: Emergency Medicine; ADMIT Internal Medicine
PROC: XW033E5 Introduction of Remdesivir Anti-infective into Peripheral Vein, Percutaneous Approach, New Technology Group 5 (ICD-10-PCS; principal; 2023-07-06)
PROC: 3E0333Z Introduction of Anti-inflammatory into Peripheral Vein, Percutaneous Approach (ICD-10-PCS; 2023-07-06)
DX: U07.1 COVID-19 (principal); J96.01 Acute respiratory failure with hypoxia; C91.10 Chronic lymphocytic leukemia of B-cell type not having achieved remission; E11.649 Type 2 diabetes mellitus with hypoglycemia without coma; F03.90 Unspecified dementia, unspecified severity, without behavioral disturbance, psychotic disturbance, mood disturbance, and anxiety; E78.5 Hyperlipidemia, unspecified; E11.51 Type 2 diabetes mellitus with diabetic peripheral angiopathy without gangrene; F17.210 Nicotine dependence, cigarettes, uncomplicated; J44.9 Chronic obstructive pulmonary disease, unspecified; D64.9 Anemia, unspecified; E86.0 Dehydration; E11.65 Type 2 diabetes mellitus with hyperglycemia; T38.0X5A Adverse effect of glucocorticoids and synthetic analogues, initial encounter; R53.81 Other malaise; E11.22 Type 2 diabetes mellitus with diabetic chronic kidney disease; N18.30 Chronic kidney disease, stage 3 unspecified; Z88.8 Allergy status to other drugs, medicaments and biological substances; Z79.84 Long term (current) use of oral hypoglycemic drugs; Z70.2 Counseling related to sexual behavior and orientation of third party; Z85.46 Personal history of malignant neoplasm of prostate
CPT/HCPCS: 36415; 71045; 80053; 82947; 83880; 85025; 85379; 94761; 94762; 96374; 97161; 97166; 97535; 99285-25; A9270; J0248; J1100; J1650; J1815; J7042; J7050